=== PATIENT | male | born 1985 | race African-American/Black ===

== ENCOUNTER 2017-08-12 18:32 | Emergency (ER) | payer SELFPAY ==
[~2017-08-12] VITALS: Ht 182.9 cm; Wt 61.3 kg
[2017-08-12 23:01] LABS: BASOPHILS % 0.8 % (0.0-2.0); EOSINOPHILS % 1.2 % (0.0-5.0); HEMATOCRIT. 44.1 % (42.0-52.0); HEMOGLOBIN. 15.3 g/dL (14.0-18.0); LYMPHOCYTES % 42.4 % (20.0-50.0); MEAN CORPUSCULAR HEMOGLOBIN 31.5 pg (28.0-32.0); MEAN CORPUSCULAR VOLUME 90.9 fL (80.0-94.0); MEAN PLATELET VOLUME 7.9 fl (7.4-10.4); NEUTROPHILS % 42.6 % (40.0-76.0); PLATELET 314 x1000/uL (130-400); RED BLOOD CELL COUNT 4.85 mill/uL (4.7-6.1); RED CELL DISTRIBUTION WIDTH 13.3 % (11.6-14.6)
[2017-08-12 23:09] LABS: CHLORIDE 106 mEq/L (98-107)
[2017-08-12 23:33] LABS: CLARITY URINE TURBID (CLEAR); COLOR URINE YELLOW (YELLOW); KETONES URINE NEGATIVE (NEGATIVE); LEUKOCYTE ESTERASE URINE NEGATIVE (NEGATIVE); NITRITE URINE NEGATIVE (NEGATIVE); OCCULT BLOOD URINE NEGATIVE (NEGATIVE); PROTEIN URINE NEGATIVE (NEGATIVE); SPECIFIC GRAVITY URINE 1.021 (1.005-1.030); UROBILINOGEN URINE 0.2 E.U./dL (0.2-1.0)
[2017-08-13 00:50] VITALS: BP 125/84
== END 2017-08-13 00:50 | disposition home or self-care (01) ==
LOC: ER 20:37
DX: R42 Dizziness and giddiness (principal); Z90.49 Acquired absence of other specified parts of digestive tract; Z87.891 Personal history of nicotine dependence
CPT/HCPCS: 36415; 70450; 71045; 80053; 81003; 84484; 85025; 93005; 99285; Z7610

== ENCOUNTER 2017-08-25 23:36 | Emergency (ER) | payer SELFPAY ==
[~2017-08-25] VITALS: Ht 182.9 cm; Wt 66.4 kg
[2017-08-26 05:58] VITALS: BP 125/69
== END 2017-08-26 06:45 | disposition home or self-care (01) ==
LOC: ER 23:36
DX: F41.9 Anxiety disorder, unspecified (principal); R20.2 Paresthesia of skin; Z87.891 Personal history of nicotine dependence; Z90.49 Acquired absence of other specified parts of digestive tract
CPT/HCPCS: 99283

== ENCOUNTER 2019-04-13 17:21 | Emergency (ER) | payer SELFPAY ==
[~2019-04-13] VITALS: Ht 182.9 cm; Wt 70.5 kg
[2019-04-13] MEDS ORDERED: SODIUM CHLORIDE 0.9% 1,000 ML IV ONE (21:55)
[2019-04-13] MEDS ORDERED: KETOROLAC 30MG/ML VIAL IV STA (21:55)
[2019-04-13] MEDS ORDERED: ONDANSETRON HCL 4MG/2ML INJ IV STA (21:55)
[2019-04-13 23:03] LABS: BASOPHILS % 0.8 % (0.0-2.0); EOSINOPHILS % 1.3 % (0.0-5.0); HEMATOCRIT. 46.2 % (42.0-52.0); HEMOGLOBIN. 15.9 g/dL (14.0-18.0); LYMPHOCYTES % 45.5 % (20.0-50.0); MEAN CORPUSCULAR HEMOGLOBIN 31.7 pg (28.0-32.0); MEAN CORPUSCULAR VOLUME 92.4 fL (80.0-94.0); MONOCYTES % 12.1 % (2.0-8.0); NEUTROPHILS % 40.3 % (40.0-76.0); PLATELET 374 x1000/uL (130-400); RED CELL DISTRIBUTION WIDTH 13.1 % (11.6-14.6)
[2019-04-13 23:04] VITALS: BP 119/81
[2019-04-13 23:06] LABS: CLARITY URINE CLEAR (CLEAR); COLOR URINE YELLOW (YELLOW); KETONES URINE NEGATIVE (NEGATIVE); LEUKOCYTE ESTERASE URINE NEGATIVE (NEGATIVE); NITRITE URINE NEGATIVE (NEGATIVE); OCCULT BLOOD URINE NEGATIVE (NEGATIVE); PROTEIN URINE NEGATIVE (NEGATIVE); SPECIFIC GRAVITY URINE 1.003 (1.005-1.030); UROBILINOGEN URINE 0.2 E.U./dL (0.2-1.0)
[2019-04-13 23:10] LABS: CHLORIDE 104 mEq/L (98-107); PROTHROMBIN TIME 10.1 sec (9.6-11.0)
== END 2019-04-14 00:35 | disposition home or self-care (01) ==
LOC: ER 17:21
DX: K59.00 Constipation, unspecified (principal); R10.30 Lower abdominal pain, unspecified; R11.0 Nausea; Z90.49 Acquired absence of other specified parts of digestive tract
CPT/HCPCS: 36415; 74021; 80053; 81003; 83690; 85025; 85610; 96374; 96375; 99284; J1885; J2405; J7030

== ENCOUNTER 2019-08-20 12:58 | Emergency (ER) | payer SELFPAY ==
[~2019-08-20] VITALS: Ht 182.9 cm; Wt 72.0 kg
[2019-08-20 14:56] LABS: CHLORIDE 106 mEq/L (98-107)
[2019-08-20 14:57] LABS: BASOPHILS % 0.8 % (0.0-2.0); EOSINOPHILS % 1.7 % (0.0-5.0); HEMATOCRIT. 46.6 % (42.0-52.0); HEMOGLOBIN. 16.1 g/dL (14.0-18.0); MEAN CORPUSCULAR HEMOGLOBIN 32.1 pg (28.0-32.0); MEAN CORPUSCULAR VOLUME 93.2 fL (80.0-94.0); MEAN PLATELET VOLUME 7.6 fl (7.4-10.4); MONOCYTES % 9.9 % (2.0-8.0); NEUTROPHILS % 50.6 % (40.0-76.0); PLATELET 333 x1000/uL (130-400); RED CELL DISTRIBUTION WIDTH 13.5 % (11.6-14.6)
[2019-08-20 19:31] VITALS: BP 129/90
== END 2019-08-20 19:34 | disposition home or self-care (01) ==
LOC: ER 13:10
DX: K59.00 Constipation, unspecified (principal); H93.8X2 Other specified disorders of left ear; Z90.89 Acquired absence of other organs
CPT/HCPCS: 36415; 74021; 80053; 84484; 85025; 93005; 99285

== ENCOUNTER 2020-04-29 10:08 | Emergency (ER) | payer MEDICAID ==
[~2020-04-29] VITALS: Ht 182.9 cm; Wt 73.0 kg
[2020-04-29] MEDS ORDERED: KETOROLAC 30MG/ML VIAL IV ONE (12:45)
[2020-04-29 13:07] LABS: BASOPHILS % 0.8 % (0.0-2.0); EOSINOPHILS % 1.3 % (0.0-5.0); HEMATOCRIT. 44.7 % (42.0-52.0); HEMOGLOBIN. 15.3 g/dL (14.0-18.0); LYMPHOCYTES % 41.3 % (20.0-50.0); MEAN CORPUSCULAR HEMOGLOBIN 31.6 pg (28.0-32.0); MEAN CORPUSCULAR VOLUME 92.3 fL (80.0-94.0); MEAN PLATELET VOLUME 7.5 fl (7.4-10.4); MONOCYTES % 10.2 % (2.0-8.0); NEUTROPHILS % 46.4 % (40.0-76.0); PLATELET 310 x1000/uL (130-400); RED BLOOD CELL COUNT 4.85 mill/uL (4.7-6.1); RED CELL DISTRIBUTION WIDTH 13.5 % (11.6-14.6)
[2020-04-29 13:13] LABS: CHLORIDE 105 mEq/L (98-107)
[2020-04-29 13:17] LABS: INR 0.9
[2020-04-29 13:29] LABS: CLARITY URINE CLEAR (CLEAR); COLOR URINE YELLOW (YELLOW); KETONES URINE NEGATIVE (NEGATIVE); LEUKOCYTE ESTERASE URINE NEGATIVE (NEGATIVE); NITRITE URINE NEGATIVE (NEGATIVE); OCCULT BLOOD URINE NEGATIVE (NEGATIVE); PH URINE 6.5 (4.5-8.0); PROTEIN URINE NEGATIVE (NEGATIVE); SPECIFIC GRAVITY URINE 1.017 (1.005-1.030); UROBILINOGEN URINE 0.2 E.U./dL (0.2-1.0)
[2020-04-29] MEDS ORDERED: IOHEXOL-300 100 ML BOTTLE ONE (15:08)
[2020-04-29 16:17] VITALS: BP 126/81
== END 2020-04-29 16:20 | disposition home or self-care (01) ==
LOC: ER 10:48
DX: R10.31 Right lower quadrant pain (principal); Z90.49 Acquired absence of other specified parts of digestive tract
CPT/HCPCS: 36415; 74177; 80053; 81003; 83690; 85025; 85610; 93005; 96374; 99285; J1885; Q9967

== ENCOUNTER 2020-05-03 13:32 | Emergency (ER) | payer MEDICAID ==
[~2020-05-03] VITALS: Ht 182.9 cm; Wt 73.0 kg
[2020-05-03] MEDS ORDERED: ACETAMINOPHEN 500MG TABLET PO ONE (14:15)
[2020-05-03] MEDS ORDERED: IBUPROFEN 800MG TABLET PO ONE (14:15)
[2020-05-03] MEDS ORDERED: METHOCARBAMOL 500MG TABLET PO NR (15:00)
[2020-05-03 17:13] VITALS: BP 118/78
== END 2020-05-03 17:14 | disposition home or self-care (01) ==
LOC: ER 13:56
DX: S16.1XXA Strain of muscle, fascia and tendon at neck level, initial encounter (principal); S39.012A Strain of muscle, fascia and tendon of lower back, initial encounter; Z90.49 Acquired absence of other specified parts of digestive tract; V49.40XA Driver injured in collision with unspecified motor vehicles in traffic accident, initial encounter; Y93.89 Activity, other specified; Y92.89 Other specified places as the place of occurrence of the external cause; Y99.8 Other external cause status
CPT/HCPCS: 72040; 99284

== ENCOUNTER 2021-06-01 21:06 | Emergency (ER) | payer MEDICAID ==
[~2021-06-01] VITALS: Ht 182.9 cm; Wt 73.0 kg
[2021-06-01 22:37] VITALS: BP 120/72
[2021-06-01] MEDS ORDERED: KETOROLAC 60MG/2ML VIAL IM ONE (23:00)
[2021-06-01] MEDS ORDERED: IBUP-2029 MT (23:50)
== END 2021-06-01 23:59 | disposition home or self-care (01) ==
LOC: ER 21:06
DX: T14.8XXA Other injury of unspecified body region, initial encounter (principal); Z90.49 Acquired absence of other specified parts of digestive tract; V89.2XXA Person injured in unspecified motor-vehicle accident, traffic, initial encounter; Y93.89 Activity, other specified; Y92.89 Other specified places as the place of occurrence of the external cause; Y99.8 Other external cause status
CPT/HCPCS: 71046; 96372; 99283; J1885